=== PATIENT | female | born 1970 | race African-American/Black ===

== ENCOUNTER 2023-04-22 10:16 | Inpatient (IN) | payer OTHER ==
[2023-04-22 10:26] VITALS: BMI 35.6
[2023-04-22] MEDS ORDERED: ACETAMINOPHEN 1000 MG/100 ML BAG IVPB ONE (11:15)
[2023-04-22] MEDS ORDERED: SODIUM CHLORIDE 0.9% 1000 ML INFUS.BAG IV ONE (11:15)
[2023-04-22] MEDS ORDERED: ACETAMINOPHEN INJECTION 100 ML IVPB ONE (11:45)
[2023-04-22 12:47] LABS: EPI CELLS 26 /uL (0-25.1); HYALINE CASTS 0 /uL (0-3.1); URINE APPEARANCE CLEAR; URINE BACTERIA 367 /uL (0-1359); URINE BILIRUBIN NEGATIVE (NEGATIVE); URINE COLOR YELLOW; URINE GLUCOSE (UA) NEGATIVE (NEGATIVE); URINE KETONE NEGATIVE (NEGATIVE); URINE LEUK ESTERASE TRACE (NEGATIVE); URINE NITRITE NEGATIVE (NEGATIVE); URINE PROTEIN NEGATIVE (NEGATIVE); URINE RBC 59 /uL (0-23.9); URINE WBC 15 /uL (0-25.8)
[2023-04-22 13:03] LABS: POTASSIUM 3.8 mmol/L (3.5-5.1)
[2023-04-22 13:06] LABS: ALBUMIN 3.5 g/dl (3.4-5.0); CALCIUM 9.3 mg/dL (8.5-10.1)
[2023-04-22 13:07] LABS: BASO % 0.6 % (0-2.0); BLOOD UREA NITROGEN 6.7 mg/dL (7-18); HEMATOCRIT 39.4 % (32.4-45.2); HEMOGLOBIN 12.8 GM/dL (10.7-15.3); LYMPH % 15.2 % (8-40); MCH 27.3 pg (25.7-33.7); MCHC 32.5 g/dl (32.0-36.0); MEAN CELL VOLUME 84.1 fl (80-96); MEAN PLT VOLUME 7.6 fl (7.5-11.1); MONO % 6.4 % (3.8-10.2); NEUT % 76.8 % (42.8-82.8); PLATELET COUNT 456 10^3/uL (134-434); RBC 4.69 M/mm3 (3.60-5.2); RDW 14.9 % (11.6-15.6); WHITE BLOOD COUNT 11.5 K/mm3 (4.0-10.0)
[2023-04-22 13:09] LABS: CREATININE 0.9 mg/dL (0.55-1.3)
[2023-04-22 13:11] LABS: BILIRUBIN,TOTAL 0.5 mg/dL (0.2-1); TOT PROT 7.5 g/dl (6.4-8.2)
[2023-04-22] MEDS ORDERED: PIPERACILLIN/TAZOB 3.375 GM 3.375 GM in DEXTROSE 5%-WATER - 50 ML IVPB ONE (14:38)
[2023-04-22] MEDS ORDERED: morphine CARPU-JECT 4 MG/1 ML DISP.SYRIN IVPUSH ONE (14:41)
[2023-04-22] MEDS ORDERED: PIPERACILLIN/TAZOB 3.375 GM 3.375 GM/50 ML BAG IVPB ONE (14:49)
[2023-04-22] MEDS ORDERED: morphine SULFATE 4 MG/ML VIAL ONE (14:49)
[2023-04-22] MEDS ORDERED: amLODIPine BESYLATE 10 MG TABLET (FP) PO SCH (16:30)
[2023-04-22] MEDS ORDERED: VALSARTAN 160 MG TABLET PO SCH (16:30)
[2023-04-22] MEDS ORDERED: ACETAMINOPHEN 1000 MG/100 ML BAG IVPB PRN (16:38)
[2023-04-22] MEDS: ENOXAPARIN NA (PORCINE) 40 MG/0.4 ML DISP.SYRIN SQ SCH (17:04)
[2023-04-22] MEDS: POLYETHYLENE GLYCOL (HEALTHYLAX) 3350 17 GM PACKET PO SCH (17:04)
[2023-04-22] MEDS: ASPIRIN 325 MG ENTERIC COATED TABLET (FP) PO SCH (17:04)
[2023-04-22 20:58] VITALS: RESP 18
[2023-04-22] MEDS: PIPERACILLIN/TAZOB 4.5 GM 4.5 GM in DEXTROSE 5%-WATER 100 ML IVPB SCH (22:00)
[2023-04-22] MEDS: GABAPENTIN 300 MG CAPSULE PO SCH (22:04)
[2023-04-22] MEDS: ATORVASTATIN CA 80 MG TABLET (FP) PO SCH (22:04)
[2023-04-22] MEDS: INSULIN ASPART SLIDING SCALE (NOVOLOG) 1 VIAL SQ SCH (22:05)
[2023-04-23] MEDS: PIPERACILLIN/TAZOB 4.5 GM 4.5 GM in DEXTROSE 5%-WATER 100 ML IVPB SCH ×3 (03:13→15:16)
[2023-04-23] MEDS: GABAPENTIN 300 MG CAPSULE PO SCH ×3 (05:14→22:29)
[2023-04-23] MEDS: INSULIN ASPART SLIDING SCALE (NOVOLOG) 1 VIAL SQ SCH ×4 (06:04→22:29)
[2023-04-23] MEDS: ASCORBIC ACID 500 MG TABLET (FP) PO SCH (09:18)
[2023-04-23] MEDS: PANTOPRAZOLE 40 MG TABLET PO SCH (09:18)
[2023-04-23] MEDS: POLYETHYLENE GLYCOL (HEALTHYLAX) 3350 17 GM PACKET PO SCH (09:18)
[2023-04-23] MEDS: ASPIRIN 325 MG ENTERIC COATED TABLET (FP) PO SCH (09:18)
[2023-04-23] MEDS: DULoxetine HCL 30 MG CAPSULE.DR PO SCH (09:18)
[2023-04-23] MEDS: ENOXAPARIN NA (PORCINE) 40 MG/0.4 ML DISP.SYRIN SQ SCH (09:18)
[2023-04-23] MEDS: VALSARTAN 160 MG TABLET PO SCH (09:18)
[2023-04-23] MEDS: THIAMINE HCL 100 MG TABLET (FP) PO SCH (09:18)
[2023-04-23] MEDS ORDERED: LACTATED RINGERS SOLUTION 1000 ML INFUS.BAG IV ONE (09:45)
[2023-04-23] MEDS ORDERED: ACETAMINOPHEN 1000 MG/100 ML BAG IVPB PRN (09:45)
[2023-04-23] MEDS ORDERED: PATIENT'S OWN MEDICATION (NON-FORMULARY) (Amlodipine Besylate/Valsartan [Amlodipine-Valsar PO SCH (10:00)
[2023-04-23] MEDS ORDERED: amLODIPine BESYLATE 5 MG TABLET (FP) PO SCH (10:00)
[2023-04-23 11:10] LABS: BASO % 0.3 % (0-2.0); EOS % 2.2 % (0-4.5); HEMATOCRIT 35.3 % (32.4-45.2); HEMOGLOBIN 11.5 GM/dL (10.7-15.3); LYMPH % 24.7 % (8-40); MCH 27.2 pg (25.7-33.7); MCHC 32.5 g/dl (32.0-36.0); MEAN CELL VOLUME 83.7 fl (80-96); MEAN PLT VOLUME 7.3 fl (7.5-11.1); MONO % 6.3 % (3.8-10.2); NEUT % 66.5 % (42.8-82.8); PLATELET COUNT 357 10^3/uL (134-434); RBC 4.21 M/mm3 (3.60-5.2); WHITE BLOOD COUNT 7.5 K/mm3 (4.0-10.0)
[2023-04-23 11:15] LABS: POTASSIUM 3.5 mmol/L (3.5-5.1)
[2023-04-23 11:21] LABS: ALBUMIN 2.8 g/dl (3.4-5.0); BLOOD UREA NITROGEN 9.2 mg/dL (7-18); CALCIUM 8.3 mg/dL (8.5-10.1); MAGNESIUM 2.2 mg/dL (1.8-2.4)
[2023-04-23 11:24] LABS: BILIRUBIN,TOTAL 0.5 mg/dL (0.2-1)
[2023-04-23 11:25] LABS: PHOSPHOROUS 3.6 mg/dL (2.5-4.9)
[2023-04-23 11:28] LABS: TOT PROT 6.1 g/dl (6.4-8.2)
[2023-04-23] MEDS ORDERED: POTASSIUM CHLORIDE ORAL LIQUID 20 MEQ/15 ML PO ONE (14:14)
[2023-04-23] MEDS: ATORVASTATIN CA 80 MG TABLET (FP) PO SCH (22:29)
[2023-04-24] MEDS: PIPERACILLIN/TAZOB 4.5 GM 4.5 GM in DEXTROSE 5%-WATER 100 ML IVPB SCH ×2 (03:00→10:03)
[2023-04-24] MEDS: GABAPENTIN 300 MG CAPSULE PO SCH ×3 (05:38→22:03)
[2023-04-24] MEDS: INSULIN ASPART SLIDING SCALE (NOVOLOG) 1 VIAL SQ SCH ×4 (06:10→22:03)
[2023-04-24] MEDS ORDERED: ONDANSETRON 4 MG/2 ML VIAL IVPUSH PRN (08:25)
[2023-04-24 09:46] LABS: HEMATOCRIT 36.8 % (32.4-45.2); MCH 27.8 pg (25.7-33.7); MCHC 32.6 g/dl (32.0-36.0); MEAN CELL VOLUME 85.2 fl (80-96); MEAN PLT VOLUME 7.4 fl (7.5-11.1); PLATELET COUNT 378 10^3/uL (134-434); RBC 4.32 M/mm3 (3.60-5.2); RDW 14.5 % (11.6-15.6); WHITE BLOOD COUNT 5.5 K/mm3 (4.0-10.0)
[2023-04-24] MEDS: amLODIPine BESYLATE 5 MG TABLET (FP) PO SCH (10:02)
[2023-04-24] MEDS: VALSARTAN 160 MG TABLET PO SCH (10:02)
[2023-04-24] MEDS: THIAMINE HCL 100 MG TABLET (FP) PO SCH (10:02)
[2023-04-24] MEDS: ASCORBIC ACID 500 MG TABLET (FP) PO SCH (10:02)
[2023-04-24] MEDS: ENOXAPARIN NA (PORCINE) 40 MG/0.4 ML DISP.SYRIN SQ SCH (10:02)
[2023-04-24] MEDS: POLYETHYLENE GLYCOL (HEALTHYLAX) 3350 17 GM PACKET PO SCH (10:02)
[2023-04-24] MEDS: ASPIRIN 81 MG CHEWABLE TABLETS PO SCH (10:02)
[2023-04-24] MEDS: DULoxetine HCL 30 MG CAPSULE.DR PO SCH (10:03)
[2023-04-24] MEDS: PANTOPRAZOLE 40 MG TABLET PO SCH (10:03)
[2023-04-24 11:04] LABS: BLOOD UREA NITROGEN 4.8 mg/dL (7-18); CALCIUM 8.5 mg/dL (8.5-10.1); CREATININE 0.8 mg/dL (0.55-1.3); MAGNESIUM 2.1 mg/dL (1.8-2.4); PHOSPHOROUS 3.2 mg/dL (2.5-4.9); POTASSIUM 3.7 mmol/L (3.5-5.1)
[2023-04-24] MEDS ORDERED: ACETAMINOPHEN 1000 MG/100 ML BAG IVPB PRN (13:46)
[2023-04-24] MEDS ORDERED: POTASSIUM CHLORIDE ORAL LIQUID 20 MEQ/15 ML PO ONE (13:56)
[2023-04-24] MEDS: AMOX TR/POT CLAV 875MG/125MG TABLETS (FP) PO SCH (17:08)
[2023-04-24] MEDS: ATORVASTATIN CA 80 MG TABLET (FP) PO SCH (22:03)
[2023-04-25] MEDS: GABAPENTIN 300 MG CAPSULE PO SCH ×2 (06:17→13:39)
[2023-04-25] MEDS: INSULIN ASPART SLIDING SCALE (NOVOLOG) 1 VIAL SQ SCH ×2 (06:18→11:24)
[2023-04-25] MEDS: AMOX TR/POT CLAV 875MG/125MG TABLETS (FP) PO SCH (08:43)
[2023-04-25] MEDS: ENOXAPARIN NA (PORCINE) 40 MG/0.4 ML DISP.SYRIN SQ SCH (09:59)
[2023-04-25] MEDS: THIAMINE HCL 100 MG TABLET (FP) PO SCH (09:59)
[2023-04-25] MEDS: PANTOPRAZOLE 40 MG TABLET PO SCH (09:59)
[2023-04-25] MEDS: ASCORBIC ACID 500 MG TABLET (FP) PO SCH (10:00)
[2023-04-25] MEDS: DULoxetine HCL 30 MG CAPSULE.DR PO SCH (10:00)
[2023-04-25] MEDS: VALSARTAN 160 MG TABLET PO SCH (10:00)
[2023-04-25] MEDS: amLODIPine BESYLATE 5 MG TABLET (FP) PO SCH (10:00)
[2023-04-25] MEDS: ASPIRIN 81 MG CHEWABLE TABLETS PO SCH (10:00)
[2023-04-25] MEDS: POLYETHYLENE GLYCOL (HEALTHYLAX) 3350 17 GM PACKET PO SCH (10:00)
[2023-04-25 11:56] LABS: HEMATOCRIT 37.4 % (32.4-45.2); HEMOGLOBIN 12.2 GM/dL (10.7-15.3); MCH 27.5 pg (25.7-33.7); MCHC 32.7 g/dl (32.0-36.0); MEAN CELL VOLUME 83.9 fl (80-96); MEAN PLT VOLUME 7.1 fl (7.5-11.1); PLATELET COUNT 435 10^3/uL (134-434); RBC 4.46 M/mm3 (3.60-5.2); RDW 14.5 % (11.6-15.6); WHITE BLOOD COUNT 6.7 K/mm3 (4.0-10.0)
[2023-04-25 13:37] LABS: BLOOD UREA NITROGEN 7.2 mg/dL (7-18); CALCIUM 8.3 mg/dL (8.5-10.1); CREATININE 0.8 mg/dL (0.55-1.3); MAGNESIUM 2.1 mg/dL (1.8-2.4); PHOSPHOROUS 3.2 mg/dL (2.5-4.9); POTASSIUM 3.6 mmol/L (3.5-5.1)
[2023-04-25 14:53] VITALS: BP 126/75; PULSE 83; TEMP 98.7
== END 2023-04-25 15:35 | disposition home health service (06) | DRG 244 ==
LOC: JER 10:16 → JERBED 14:40 → J5S 18:52
PROVIDERS: ADMIT Internal Medicine; ATTEND Internal Medicine
DX: K57.32 Diverticulitis of large intestine without perforation or abscess without bleeding (principal); I10 Essential (primary) hypertension; D64.9 Anemia, unspecified; E11.9 Type 2 diabetes mellitus without complications; F32.A Depression, unspecified; G62.9 Polyneuropathy, unspecified; E78.5 Hyperlipidemia, unspecified; G43.909 Migraine, unspecified, not intractable, without status migrainosus; J45.909 Unspecified asthma, uncomplicated; M48.00 Spinal stenosis, site unspecified; E86.0 Dehydration
CPT/HCPCS: 0241U-QW; 36415; 74177-TC; 80048; 80053; 81003; 82962; 83605; 83690; 83735; 84100; 84484; 85025; 85027; 87086; 93005; 93010; 97116-GP; 97162-GP; 99285-25; Q9967

== ENCOUNTER 2024-01-05 13:23 | Day surgery (SDC) | payer OTHER ==
[2024-01-05 15:01] LABS: BASO % 0.5 % (0-2.0); HEMATOCRIT 44.1 % (32.4-45.2); HEMOGLOBIN 14.2 GM/dL (10.7-15.3); LYMPH % 16.3 % (8-40); MCH 27.5 pg (25.7-33.7); MCHC 32.2 g/dl (32.0-36.0); MEAN CELL VOLUME 85.3 fl (80-96); MEAN PLT VOLUME 7.9 fl (7.5-11.1); MONO % 3.4 % (3.8-10.2); NEUT % 78.8 % (42.8-82.8); PLATELET COUNT 452 10^3/uL (134-434); RBC 5.17 M/mm3 (3.60-5.2); RDW 15.8 % (11.6-15.6); WHITE BLOOD COUNT 9.5 K/mm3 (4.0-10.0)
[2024-01-05 15:17] LABS: POTASSIUM 5.3 mmol/L (3.5-5.1)
[2024-01-05 15:20] LABS: ALBUMIN 3.3 g/dl (3.4-5.0); BLOOD UREA NITROGEN 35.5 mg/dL (7-18); CALCIUM 9.6 mg/dL (8.5-10.1); MAGNESIUM 3.2 mg/dL (1.8-2.4)
[2024-01-05 15:22] LABS: CREATININE 1.7 mg/dL (0.55-1.3)
[2024-01-05 15:24] LABS: BILIRUBIN,TOTAL 0.5 mg/dL (0.2-1); TOT PROT 7.4 g/dl (6.4-8.2)
[2024-01-05 15:33] LABS: INR 1.03 (0.83-1.09); PROTHROMBIN TIME (PATIENT) 11.8 SEC (9.7-13.0)
[2024-01-05 15:36] LABS: ACTIVATED PTT 28.8 SECONDS (25.2-36.5)
[2024-01-05 17:05] LABS: EPI CELLS 11 /uL (0-25.1); HYALINE CASTS 5 /uL (0-3.1); PH,URINE 5.5 (5.0-8.0); URINE APPEARANCE TURBID; URINE BACTERIA 183 /uL (0-1359); URINE BILIRUBIN NEGATIVE (NEGATIVE); URINE COLOR YELLOW; URINE GLUCOSE (UA) NEGATIVE (NEGATIVE); URINE KETONE 1+ (NEGATIVE); URINE LEUK ESTERASE 2+ (NEGATIVE); URINE NITRITE NEGATIVE (NEGATIVE); URINE PROTEIN 1+ (NEGATIVE); URINE UROBILINOGEN 0.2 mg/dL (0.2-1.0); URINE WBC 293 /uL (0-25.8)
[2024-01-05] MEDS ORDERED: CEFTRIAXONE 1 GM/50 ML BAG ONE (17:40)
[2024-01-05] MEDS: CALCIUM GLUCONATE 10% - 1,000 MG/10 ML VIAL IVPB ONE (17:41)
[2024-01-05] MEDS: SODIUM CHLORIDE 1,000 ML IV STA (17:41)
[2024-01-05] MEDS: SODIUM ZIRCONIUM CYCLOSILICATE (LOKELMA) 5 GM PACKET PO ONE (17:41)
[2024-01-05] MEDS: CEFTRIAXONE 1 GM in DEXTROSE 5%-WATER - 100 ML IVPB ONE (17:46)
[2024-01-05 17:52] LABS: POTASSIUM 4.5 mmol/L (3.5-5.1)
[2024-01-05 17:54] LABS: CALCIUM 9.2 mg/dL (8.5-10.1)
[2024-01-05 17:55] LABS: BLOOD UREA NITROGEN 35.1 mg/dL (7-18)
[2024-01-05 17:58] LABS: URINE RBC 2642.5 /uL (0-23.9); YEAST MODERATE (NEGATIVE)
[2024-01-05 17:58] LABS: CREATININE 1.6 mg/dL (0.55-1.3)
[2024-01-05] MEDS ORDERED: FAMOTIDINE 20 MG/50 ML IVPB 20 MG/50 ML MG IVPB ONE (20:12)
[2024-01-05] MEDS ORDERED: ONDANSETRON 4 MG/2 ML VIAL ONE (20:12)
[2024-01-05] MEDS: FAMOTIDINE 20 MG/50 ML IVPB 20 MG/50 ML MG IVPB ONE (20:26)
[2024-01-05] MEDS: SODIUM CHLORIDE 0.9% 500 ML INFUS.BAG IV ONE (20:26)
[2024-01-05] MEDS: ONDANSETRON 4 MG/2 ML VIAL IVPUSH ONE (20:27)
[2024-01-06] MEDS ORDERED: ONDANSETRON 4 MG/2 ML VIAL ONE ×3 (02:44→18:17)
[2024-01-06] MEDS: ONDANSETRON 4 MG/2 ML VIAL IVPUSH PRN (02:55)
[2024-01-06] MEDS ORDERED: HEPARIN NA (PORCINE) 5,000 UNITS/ML 1ML VIAL ONE ×2 (05:29→21:46)
[2024-01-06] MEDS: HEPARIN NA (PORCINE) 5,000 UNITS/ML 1ML VIAL SQ SCH (05:43)
[2024-01-06] MEDS: DEXTROSE 5%-WATER - 1,000 ML IV SCH (05:43)
[2024-01-06] MEDS: INSULIN ASPART SLIDING SCALE (NOVOLOG) 1 VIAL SQ SCH (08:42)
[2024-01-06 09:17] LABS: POTASSIUM 4.5 mmol/L (3.5-5.1)
[2024-01-06 09:19] LABS: BLOOD UREA NITROGEN 28.7 mg/dL (7-18)
[2024-01-06 09:22] LABS: CREATININE 1.3 mg/dL (0.55-1.3)
[2024-01-06] MEDS ORDERED: DULoxetine HCL 30 MG CAPSULE.DR PO ONE (10:03)
[2024-01-06] MEDS ORDERED: ASPIRIN 81 MG CHEWABLE TABLETS ONE (10:03)
[2024-01-06] MEDS ORDERED: CEFTRIAXONE 1 GM/50 ML BAG ONE (10:05)
[2024-01-06] MEDS: CEFTRIAXONE 1 GM in DEXTROSE 5%-WATER - 50 ML IVPB SCH (10:26)
[2024-01-06] MEDS: THIAMINE 100 MG TABLET PO SCH (10:26)
[2024-01-06] MEDS: DULoxetine HCL 30 MG CAPSULE.DR PO SCH (10:26)
[2024-01-06] MEDS: ASPIRIN 81 MG CHEWABLE TABLETS PO SCH (10:26)
[2024-01-06] MEDS: GABAPENTIN 300 MG CAPSULE PO SCH (14:25)
[2024-01-06] MEDS ORDERED: GABAPENTIN 300 MG CAPSULE ONE ×2 (21:45→21:49)
[2024-01-07 01:41] VITALS: BMI 34.4
[2024-01-07 08:40] LABS: HEMATOCRIT 39.9 % (32.4-45.2); HEMOGLOBIN 13.2 GM/dL (10.7-15.3); MCH 28.4 pg (25.7-33.7); MEAN CELL VOLUME 86.1 fl (80-96); MEAN PLT VOLUME 8.4 fl (7.5-11.1); PLATELET COUNT 364 10^3/uL (134-434); RBC 4.64 M/mm3 (3.60-5.2); RDW 15.8 % (11.6-15.6); WHITE BLOOD COUNT 7.1 K/mm3 (4.0-10.0)
[2024-01-07 08:53] LABS: POTASSIUM 3.9 mmol/L (3.5-5.1)
[2024-01-07 09:02] LABS: BLOOD UREA NITROGEN 20.3 mg/dL (7-18); CALCIUM 9.1 mg/dL (8.5-10.1)
[2024-01-07 09:03] LABS: MAGNESIUM 2.4 mg/dL (1.8-2.4)
[2024-01-07 09:05] LABS: CREATININE 1.1 mg/dL (0.55-1.3); PHOSPHOROUS 3.2 mg/dL (2.5-4.9)
[2024-01-07] MEDS ORDERED: PROPOFOL 20 ML ONE (10:32)
[2024-01-07] MEDS ORDERED: ONDANSETRON 4 MG/2 ML VIAL ONE (10:32)
[2024-01-07] MEDS ORDERED: MIDAZOLAM HCL 2 MG/2 ML SINGLE DOSE VIAL ONE (10:32)
[2024-01-07] MEDS ORDERED: DEXAMETHASONE SOD PHOSPHATE 4 MG/1 ML VIAL ONE (10:32)
[2024-01-07] MEDS ORDERED: LIDOCAINE HCL/PF 2% SDV 5ML VIAL ONE (10:32)
[2024-01-07] MEDS ORDERED: ROCURONIUM BROMIDE 50 MG/5 ML SYRINGE ONE (10:32)
[2024-01-07] MEDS ORDERED: BUPIVACAINE HCL/PF 0.25% (2.5MG/ML) 10 ML VIAL ONE (11:10)
[2024-01-07] MEDS ORDERED: PHENYLEPHRINE HCL 10 MG/1 ML SINGLE DOSE VIAL ONE (11:16)
[2024-01-07] MEDS ORDERED: ePHEDrine SULFATE 50 MG/1 ML AMPULE ONE (11:46)
[2024-01-07] MEDS ORDERED: SUGAMMADEX SODIUM 200 MG/2 ML VIAL ONE (12:05)
[2024-01-07] MEDS: BUPIVACAINE HCL/PF 0.25% (2.5MG/ML) 10 ML VIAL IJ ONE (12:07)
[2024-01-07] MEDS ORDERED: ONDANSETRON 4 MG/2 ML VIAL IVPUSH PRN ×3 (12:08→13:12)
[2024-01-07] MEDS ORDERED: DEXTROSE 5%-WATER - 1,000 ML IV SCH (13:12)
[2024-01-07] MEDS: LACTATED RINGERS SOLUTION 1,000 ML IV SCH ×2 (13:57→13:58)
[2024-01-07] MEDS: GABAPENTIN 300 MG CAPSULE PO SCH (14:01)
[2024-01-07] MEDS: SODIUM CHLORIDE 1,000 ML IV SCH (14:02)
[2024-01-07] MEDS ORDERED: oxyCODONE HCL 5 MG TABLET PO PRN (14:24)
[2024-01-07] MEDS: DEXTROSE 5%-WATER - 1,000 ML IV SCH (15:23)
[2024-01-07] MEDS: HEPARIN NA (PORCINE) 5,000 UNITS/ML 1ML VIAL SQ SCH (15:24)
[2024-01-07] MEDS: ACETAMINOPHEN 500 MG TABLET (FP) PO SCH (17:46)
[2024-01-07] MEDS: INSULIN ASPART SLIDING SCALE (NOVOLOG) 1 VIAL SQ SCH (17:47)
[2024-01-07] MEDS: BENZOCAINE/MENTHOL (CHLORASEPTIC ) LOZENGE MM PRN (21:05)
[2024-01-07] MEDS: PHENOL 177 ML SPRAY BOTTLE MM PRN (23:59)
[2024-01-07] MEDS: diphenhydrAMINE HCL 25 MG CAPSULE (FP) PO ONE (23:59)
[2024-01-08 08:23] LABS: HEMATOCRIT 35.6 % (32.4-45.2); HEMOGLOBIN 11.6 GM/dL (10.7-15.3); MCH 27.9 pg (25.7-33.7); MCHC 32.6 g/dl (32.0-36.0); MEAN CELL VOLUME 85.8 fl (80-96); MEAN PLT VOLUME 8.6 fl (7.5-11.1); PLATELET COUNT 294 10^3/uL (134-434); RBC 4.15 M/mm3 (3.60-5.2); WHITE BLOOD COUNT 10.2 K/mm3 (4.0-10.0)
[2024-01-08 08:41] LABS: POTASSIUM 3.8 mmol/L (3.5-5.1)
[2024-01-08 08:47] LABS: CALCIUM 8.4 mg/dL (8.5-10.1)
[2024-01-08 08:48] LABS: ALBUMIN 2.8 g/dl (3.4-5.0); BLOOD UREA NITROGEN 14.1 mg/dL (7-18)
[2024-01-08 08:51] LABS: CREATININE 1.1 mg/dL (0.55-1.3)
[2024-01-08 08:52] LABS: BILIRUBIN,TOTAL 0.5 mg/dL (0.2-1)
[2024-01-08] MEDS: THIAMINE 100 MG TABLET PO SCH (10:15)
[2024-01-08] MEDS: DULoxetine HCL 30 MG CAPSULE.DR PO SCH (10:15)
[2024-01-08] MEDS: ASPIRIN 81 MG CHEWABLE TABLETS PO SCH (10:15)
[2024-01-09 08:19] LABS: POTASSIUM 3.4 mmol/L (3.5-5.1)
[2024-01-09 08:22] LABS: ALBUMIN 2.6 g/dl (3.4-5.0); BLOOD UREA NITROGEN 10.1 mg/dL (7-18); MAGNESIUM 1.7 mg/dL (1.8-2.4)
[2024-01-09 08:27] LABS: BILIRUBIN,TOTAL 0.5 mg/dL (0.2-1); TOT PROT 5.5 g/dl (6.4-8.2)
[2024-01-09 08:29] LABS: HEMATOCRIT 35.6 % (32.4-45.2); HEMOGLOBIN 11.6 GM/dL (10.7-15.3); MCH 28.1 pg (25.7-33.7); MCHC 32.5 g/dl (32.0-36.0); MEAN CELL VOLUME 86.4 fl (80-96); MEAN PLT VOLUME 8.8 fl (7.5-11.1); PLATELET COUNT 284 10^3/uL (134-434); RBC 4.12 M/mm3 (3.60-5.2); RDW 14.6 % (11.6-15.6); WHITE BLOOD COUNT 8.7 K/mm3 (4.0-10.0)
[2024-01-09] MEDS ORDERED: SUMATRIPTAN SUCCINATE 6 MG/0.5 ML VIAL SQ PRN (15:00)
[2024-01-09 17:22] VITALS: TEMP 97.9
[2024-01-09] MEDS: ALBUTEROL SO4 HFA INHALER IH SCH (19:19)
[2024-01-09] MEDS ORDERED: PATIENT'S OWN MEDICATION (NON-FORMULARY) (Diclofenac Sodium 0.01 MG/MG Gel) TP SCH (22:00)
[2024-01-09 23:58] VITALS: BP 103/69; PULSE 87; RESP 18
[2024-01-10] MEDS ORDERED: DULoxetine HCL 30 MG CAPSULE.DR PO SCH (10:00)
[2024-01-10] MEDS ORDERED: amLODIPine BESYLATE 5 MG TABLET (FP) PO SCH (10:00)
[2024-01-10] MEDS ORDERED: PATIENT'S OWN MEDICATION (NON-FORMULARY) (Amlodipine Besylate/Valsartan [Amlodipine-Valsar PO SCH (10:00)
[2024-01-10] MEDS ORDERED: VALSARTAN 160 MG TABLET PO SCH (10:00)
[2024-01-10] MEDS ORDERED: IRON POLYSACCHARIDES 150 MG CAPSULE PO SCH (10:00)
== END 2024-01-09 23:00 ==
LOC: JER 13:23 → JERBED 21:56 → UNDOADMIN 21:56 → JASUSAT 01-07 01:15 → J4W 01-07 01:15 → JERBED 01-07 01:15 → SUATTDRO 01-07 01:15 → J4W 01-07 01:15 → JASUSAT 01-09 23:00
PROVIDERS: ATTEND Internal Medicine
PROC: 3E033GC Introduction of Other Therapeutic Substance into Peripheral Vein, Percutaneous Approach (ICD-10-PCS; 2024-01-07)
PROC: 3E033GC Introduction of Other Therapeutic Substance into Peripheral Vein, Percutaneous Approach (ICD-10-PCS; 2024-01-07)
PROC: 3E03329 Introduction of Other Anti-infective into Peripheral Vein, Percutaneous Approach (ICD-10-PCS; principal; 2024-01-07 11:00)
DX: N17.9 Acute kidney failure, unspecified (principal); N39.0 Urinary tract infection, site not specified; R79.89 Other specified abnormal findings of blood chemistry; R11.2 Nausea with vomiting, unspecified; R53.1 Weakness; R10.84 Generalized abdominal pain; R63.0 Anorexia; Z20.822 Contact with and (suspected) exposure to COVID-19
CPT/HCPCS: 0241U-QW; 36415; 70450-TC; 71046-TC-FY; 71250-TC; 74176-TC; 76705-TC; 78226-TC; 80048; 80053; 80307; 81003; 82150; 82962; 83036; 83605; 83690; 83735; 84100; 84484; 85025; 85027; 85610; 85730; 86850; 86900; 86901; 87086; 88304-TC; 93005; 93010; 93306-TC; 94760; 97116-GP; 97162-GP; 99285-25; A9537; J1644

== ENCOUNTER 2024-01-17 17:40 | Inpatient (IN) | payer OTHER ==
[2024-01-17 18:34] LABS: INR 1.04 (0.83-1.09)
[2024-01-17 18:37] LABS: ACTIVATED PTT 28.5 SECONDS (25.2-36.5)
[2024-01-17 18:54] LABS: BASO % 0.8 % (0-2.0); EOS % 1.5 % (0-4.5); HEMATOCRIT 37.8 % (32.4-45.2); HEMOGLOBIN 12.4 GM/dL (10.7-15.3); LYMPH % 24.6 % (8-40); MCH 28.2 pg (25.7-33.7); MCHC 32.9 g/dl (32.0-36.0); MEAN CELL VOLUME 85.8 fl (80-96); MEAN PLT VOLUME 7.6 fl (7.5-11.1); NEUT % 65.1 % (42.8-82.8); PLATELET COUNT 317 10^3/uL (134-434); RDW 16.1 % (11.6-15.6); WHITE BLOOD COUNT 9.7 K/mm3 (4.0-10.0)
[2024-01-17 19:16] LABS: POTASSIUM 3.1 mmol/L (3.5-5.1)
[2024-01-17 19:17] LABS: CALCIUM 8.8 mg/dL (8.5-10.1)
[2024-01-17 19:21] LABS: CREATININE 1.4 mg/dL (0.55-1.3)
[2024-01-17 19:23] LABS: TOT PROT 6.4 g/dl (6.4-8.2)
[2024-01-17 19:24] LABS: BILIRUBIN,TOTAL 0.4 mg/dL (0.2-1)
[2024-01-17 19:36] LABS: ALBUMIN 3.2 g/dl (3.4-5.0)
[2024-01-17] MEDS ORDERED: KCL 10 MEQ IVPB 10 MEQ/100 ML INFUS.BAG IVPB SCH (20:15)
[2024-01-17] MEDS: LACTATED RINGERS SOLUTION 1000 ML INFUS.BAG IV ONE (21:05)
[2024-01-17] MEDS ORDERED: POTASSIUM CHLORIDE ORAL LIQUID 20 MEQ/15 ML ONE (21:10)
[2024-01-17] MEDS ORDERED: ACETAMINOPHEN INJECTION 100 ML ONE (21:10)
[2024-01-17] MEDS: POTASSIUM CHLORIDE ORAL LIQUID 20 MEQ/15 ML PO ONE (21:22)
[2024-01-17] MEDS: LACTATED RINGERS SOLUTION 1,000 ML with POTASSIUM CHLORIDE 20 MEQ IV ONE (21:22)
[2024-01-17] MEDS: ACETAMINOPHEN 1000 MG/100 ML BAG IVPB ONE (21:22)
[2024-01-17 22:08] LABS: MAGNESIUM 1.5 mg/dL (1.8-2.4)
[2024-01-17 22:13] LABS: EPI CELLS >36 /uL (0-25.1); HYALINE CASTS 2 /uL (0-3.1); PH,URINE 5.5 (5.0-8.0); URINE APPEARANCE CLOUDY; URINE BACTERIA 1987 /uL (0-1359); URINE BILIRUBIN NEGATIVE (NEGATIVE); URINE COLOR YELLOW; URINE GLUCOSE (UA) NEGATIVE (NEGATIVE); URINE KETONE NEGATIVE (NEGATIVE); URINE LEUK ESTERASE 1+ (NEGATIVE); URINE NITRITE NEGATIVE (NEGATIVE); URINE PROTEIN NEGATIVE (NEGATIVE); URINE UROBILINOGEN 0.2 mg/dL (0.2-1.0); URINE WBC 64 /uL (0-25.8)
[2024-01-17 22:38] LABS: URINE RBC 84.9 /uL (0-23.9)
[2024-01-17] MEDS: CEFTRIAXONE 1,000 MG in DEXTROSE 5%-WATER - 50 ML IVPB ONE (23:44)
[2024-01-17] MEDS: ASPIRIN 325 MG TABLET PO SCH (23:45)
[2024-01-17] MEDS: ATORVASTATIN CA 80 MG TABLET (FP) PO SCH (23:45)
[2024-01-17] MEDS ORDERED: ATORVASTATIN CA 80 MG TABLET (FP) ONE (23:56)
[2024-01-17] MEDS ORDERED: ASPIRIN 325 MG TABLET ONE (23:56)
[2024-01-17] MEDS ORDERED: CEFTRIAXONE 1 GM/50 ML BAG ONE (23:56)
[2024-01-18] MEDS: SODIUM CHLORIDE 1,000 ML IV SCH (02:34)
[2024-01-18] MEDS: CLOPIDOGREL BISULFATE 300 MG TABLET PO ONE (02:34)
[2024-01-18] MEDS ORDERED: CLOPIDOGREL BISULFATE 300 MG TABLET ONE (02:34)
[2024-01-18] MEDS: MAGNESIUM 1GM/D5W 100ML - 100 ML IVPB IVPB ONE (05:39)
[2024-01-18] MEDS ORDERED: INSULIN ASPART SLIDING SCALE (NOVOLOG) 1 VIAL SQ SCH (07:00)
[2024-01-18] MEDS: INSULIN ASPART SLIDING SCALE (NOVOLOG) 1 VIAL SQ SCH (07:19)
[2024-01-18 09:03] LABS: HEMATOCRIT 39.7 % (32.4-45.2); HEMOGLOBIN 12.8 GM/dL (10.7-15.3); MCH 27.9 pg (25.7-33.7); MCHC 32.2 g/dl (32.0-36.0); MEAN CELL VOLUME 86.8 fl (80-96); MEAN PLT VOLUME 7.9 fl (7.5-11.1); PLATELET COUNT 330 10^3/uL (134-434); RBC 4.58 M/mm3 (3.60-5.2); RDW 15.6 % (11.6-15.6); WHITE BLOOD COUNT 7.5 K/mm3 (4.0-10.0)
[2024-01-18 09:12] LABS: POTASSIUM 3.4 mmol/L (3.5-5.1)
[2024-01-18 09:15] LABS: ALBUMIN 3.2 g/dl (3.4-5.0)
[2024-01-18 09:18] LABS: CREATININE 1.1 mg/dL (0.55-1.3)
[2024-01-18 09:22] LABS: TOT PROT 6.5 g/dl (6.4-8.2)
[2024-01-18 09:25] LABS: BLOOD UREA NITROGEN 10.5 mg/dL (7-18)
[2024-01-18 09:27] LABS: CALCIUM 8.5 mg/dL (8.5-10.1)
[2024-01-18 09:28] LABS: PHOSPHOROUS 4.2 mg/dL (2.5-4.9)
[2024-01-18 09:29] LABS: BILIRUBIN,TOTAL 0.5 mg/dL (0.2-1)
[2024-01-18] MEDS: amLODIPine BESYLATE 5 MG TABLET (FP) PO SCH (10:56)
[2024-01-18] MEDS: HEPARIN NA (PORCINE) 5,000 UNITS/ML 1ML VIAL SQ SCH (10:56)
[2024-01-18] MEDS: LOSARTAN POTASSIUM 50 MG TABLET PO SCH (10:56)
[2024-01-18] MEDS: KCL 10 MEQ IVPB 10 MEQ/100 ML INFUS.BAG IVPB SCH (10:57)
[2024-01-18] MEDS: CLOPIDOGREL BISULFATE 75 MG TABLET (FP) PO SCH (11:00)
[2024-01-18] MEDS: PANTOPRAZOLE 40 MG TABLET PO SCH (11:07)
[2024-01-18] MEDS: CEFTRIAXONE 2 GM in DEXTROSE 5%-WATER 100 ML IVPB SCH (11:31)
[2024-01-18] MEDS: MAG HYDROX/AL HYDROX/SIMETH 30 ML UNIT-DOSE CUP PO PRN (11:54)
[2024-01-18] MEDS: METOCLOPRAMIDE HCL INJECTION 10 MG/2 ML VIAL IVPUSH PRN (11:54)
[2024-01-18] MEDS: ONDANSETRON 4 MG/2 ML VIAL IVPUSH ONE (16:03)
[2024-01-18] MEDS ORDERED: CEFTRIAXONE 2 GM-D5W BAG 2 GM/50 ML BAG IVPB SCH (22:00)
[2024-01-19 08:47] LABS: BASO % 0.6 % (0-2.0); EOS % 3.3 % (0-4.5); HEMATOCRIT 37.3 % (32.4-45.2); HEMOGLOBIN 12.7 GM/dL (10.7-15.3); LYMPH % 28.7 % (8-40); MCHC 33.9 g/dl (32.0-36.0); MEAN CELL VOLUME 85.4 fl (80-96); MONO % 6.5 % (3.8-10.2); NEUT % 60.9 % (42.8-82.8); PLATELET COUNT 340 10^3/uL (134-434); RBC 4.37 M/mm3 (3.60-5.2); RDW 16.3 % (11.6-15.6); WHITE BLOOD COUNT 7.1 K/mm3 (4.0-10.0)
[2024-01-19] MEDS ORDERED: PATIENT'S OWN MEDICATION (NON-FORMULARY) (Insulin Glargine,Hum.Rec.Anlog [Lantus Solostar] SQ SCH (09:12)
[2024-01-19 09:13] LABS: POTASSIUM 3.8 mmol/L (3.5-5.1)
[2024-01-19 09:20] LABS: ALBUMIN 3.2 g/dl (3.4-5.0); CALCIUM 7.8 mg/dL (8.5-10.1)
[2024-01-19 09:21] LABS: MAGNESIUM 1.4 mg/dL (1.8-2.4)
[2024-01-19 09:22] LABS: CREATININE 1.2 mg/dL (0.55-1.3)
[2024-01-19 09:24] LABS: BILIRUBIN,TOTAL 0.5 mg/dL (0.2-1); TOT PROT 6.5 g/dl (6.4-8.2)
[2024-01-19 15:03] VITALS: BMI 32.9
[2024-01-19] MEDS: MAGNESIUM CITRATE 300 ML BOTTLE PO ONE (17:45)
[2024-01-19] MEDS: MAGNESIUM 1GM/D5W 100ML - 100 ML IVPB IVPB ONE (18:26)
[2024-01-20 08:59] LABS: BASO % 0.5 % (0-2.0); HEMATOCRIT 36.9 % (32.4-45.2); HEMOGLOBIN 11.9 GM/dL (10.7-15.3); LYMPH % 26.2 % (8-40); MCH 27.8 pg (25.7-33.7); MCHC 32.3 g/dl (32.0-36.0); MEAN PLT VOLUME 7.9 fl (7.5-11.1); MONO % 6.2 % (3.8-10.2); NEUT % 64.1 % (42.8-82.8); PLATELET COUNT 319 10^3/uL (134-434); RBC 4.29 M/mm3 (3.60-5.2); RDW 15.7 % (11.6-15.6)
[2024-01-20 09:11] LABS: POTASSIUM 3.1 mmol/L (3.5-5.1)
[2024-01-20 09:16] LABS: CALCIUM 8.2 mg/dL (8.5-10.1)
[2024-01-20 09:17] LABS: ALBUMIN 3.1 g/dl (3.4-5.0); MAGNESIUM 1.7 mg/dL (1.8-2.4)
[2024-01-20 09:22] LABS: TOT PROT 5.9 g/dl (6.4-8.2)
[2024-01-20 09:23] LABS: BILIRUBIN,TOTAL 0.5 mg/dL (0.2-1)
[2024-01-20] MEDS: ASPIRIN COATED 81 MG TABLET.EC PO SCH (09:52)
[2024-01-20] MEDS: POTASSIUM CHLORIDE ORAL LIQUID 20 MEQ/15 ML PO ONE (09:57)
[2024-01-20 14:44] VITALS: BP 143/82; PULSE 75; RESP 20; TEMP 98.4
== END 2024-01-20 17:34 | disposition home health service (06) | DRG 54 ==
LOC: JER 17:40 → JERBED 20:58 → J4W 01-18 05:15
PROVIDERS: ADMIT Internal Medicine; ATTEND Internal Medicine
DX: G43.909 Migraine, unspecified, not intractable, without status migrainosus (principal); E11.65 Type 2 diabetes mellitus with hyperglycemia; E87.0 Hyperosmolality and hypernatremia; E83.42 Hypomagnesemia; E11.40 Type 2 diabetes mellitus with diabetic neuropathy, unspecified; I10 Essential (primary) hypertension; E78.5 Hyperlipidemia, unspecified; Z79.84 Long term (current) use of oral hypoglycemic drugs; D64.9 Anemia, unspecified; J45.909 Unspecified asthma, uncomplicated; E87.6 Hypokalemia; Z99.3 Dependence on wheelchair; R29.810 Facial weakness; E86.0 Dehydration; R26.2 Difficulty in walking, not elsewhere classified; Z79.4 Long term (current) use of insulin
CPT/HCPCS: 36415; 70450-TC; 70496-TC; 70498-TC; 70551-TC; 71045-TC-FY; 74177-TC; 80053; 80061; 81003; 82550; 82962; 82977; 83036; 83735; 84100; 84484; 85025; 85027; 85610; 85651; 85730; 86140; 86850; 86900; 86901; 87086; 93005; 93010; 93880-TC; 95816; 97116-GP; 97162-GP; 99285-25; J0131; J1644; Q9967